=== PATIENT | male | born 1995 | race Caucasian/White ===

== ENCOUNTER 2020-09-30 08:56 | Emergency (ER) | payer OTHER ==
[~2020-09-30] VITALS: Ht 180.3 cm; Wt 102.1 kg
[2020-09-30] MEDS ORDERED: KEFLEX500 M1 PO (09:07)
[2020-09-30] MEDS ORDERED: HYDROCODON-ACE1 EAC7 PO (09:07)
[2020-09-30] MEDS ORDERED: BACTRIM DS TAB1 EACH PO (09:07)
[2020-09-30 09:09] VITALS: BP 179/94
== END 2020-09-30 09:10 | disposition home or self-care (01) ==
LOC: M.ERS 08:56
DX: L03.114 Cellulitis of left upper limb (principal)